=== PATIENT | male | born 1975 | race Caucasian/White ===

== ENCOUNTER 2017-07-27 16:23 | Emergency (ER) | payer BC, OTHER ==
[~2017-07-27] VITALS: Ht 182.9 cm; Wt 152.0 kg
[2017-07-27] MEDS ORDERED: DIABETIC PILL (16:43)
[2017-07-27] MEDS ORDERED: LOSARTAN (16:43)
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
[2017-07-27] MEDS ORDERED: NS 100 ML (IVPB) BAG IV ONE (18:00)
[2017-07-27] MEDS ORDERED: IOHEXOL 350 MG/ML 100 ML (OMNIPAQUE 350) VIAL IV ONE (18:00)
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
[2017-07-27] MEDS ORDERED: RX-NAPROXEN (NAPROSYN) 250 MG TAB PPK#4 PO STA (19:02)
[2017-07-27] MEDS ORDERED: RX-CYCLOBENZAPRINE 10 MG (FLEXERIL) TAB PPK#3 PO STA (19:02)
[2017-07-27 19:15] VITALS: BP 137/95
[2017-07-28] MEDS ORDERED: CYCL10TA9 PO (10:53)
== END 2017-07-27 19:15 | disposition home or self-care (01) ==
LOC: ER 16:24
DX: S16.1XXA Strain of muscle, fascia and tendon at neck level, initial encounter (principal); S39.012A Strain of muscle, fascia and tendon of lower back, initial encounter; S20.211A Contusion of right front wall of thorax, initial encounter; S30.1XXA Contusion of abdominal wall, initial encounter; R40.2142 Coma scale, eyes open, spontaneous, at arrival to emergency department; R40.2252 Coma scale, best verbal response, oriented, at arrival to emergency department; R40.2362 Coma scale, best motor response, obeys commands, at arrival to emergency department; E11.9 Type 2 diabetes mellitus without complications; Z88.5 Allergy status to narcotic agent; Z87.19 Personal history of other diseases of the digestive system; V49.40XA Driver injured in collision with unspecified motor vehicles in traffic accident, initial encounter
CPT/HCPCS: 70450; 71260; 72100; 72125; 74177; 82962; 93005